=== PATIENT | female | born 1950 | race Caucasian/White ===

== ENCOUNTER 2020-12-06 18:43 | Emergency (ER) | payer OTHER ==
[~2020-12-06] VITALS: Ht 157.5 cm; Wt 68.9 kg
[2020-12-06] MEDS ORDERED: SYNTHROID125 MCG PO (19:05)
[2020-12-06] MEDS ORDERED: GABAPENTIN300 M2 PO (19:05)
[2020-12-06] MEDS ORDERED: NORVASC10 MG PO (19:06)
[2020-12-06] MEDS ORDERED: AMOX-CLAV 875-1 EACH PO (19:06)
[2020-12-06] MEDS ORDERED: VITAMIN D3250 MCG PO (19:07)
== END 2020-12-06 22:39 | disposition home or self-care (01) ==
LOC: ER 18:43
DX: M79.661 Pain in right lower leg (principal); R20.0 Anesthesia of skin; F41.8 Other specified anxiety disorders